=== PATIENT | female | born 1965 | race Caucasian/White ===

== ENCOUNTER → 2017-08-17 19:10 | Outpatient (CLI) | payer OTHER ==
[2016-07-09 08:23] VITALS: BMI 45.7
[~2017-08-17 19:10] MED LIST: AMBIEN10 MG PO; ARMOUR THYROID60 M1 PO; BETAPACE160 MG PO; ELIQUIS5 MG PO; FUROSEMIDE20 MG PO; GLUCOPHAGE500 MG PO; HYZAAR 100-12.51 TAB PO; KLONOPIN1 MG PO; METOPROLOL TART50 MG PO; NEXIUM40 MG PO
== END | disposition home or self-care (01) ==
LOC: D.MAMMO 08-03 13:45
DX: Z12.31 Encounter for screening mammogram for malignant neoplasm of breast (principal)

== ENCOUNTER 2021-02-03 09:30 | Outpatient (CLI) | payer OTHER ==
[2016-07-09 08:23] VITALS: BMI 45.7
== END 2021-02-03 23:59 | disposition home or self-care (01) ==
LOC: D.MAMMO 09:30
PROVIDERS: ATTEND Emergency Medicine
DX: Z12.31 Encounter for screening mammogram for malignant neoplasm of breast (principal)